=== PATIENT | female | born 1980 | race Caucasian/White ===

== ENCOUNTER 2020-12-15 16:18 | Outpatient (CLI) | payer OTHER | END 2020-12-15 16:19 | disposition home or self-care (01) | LOC: DTY/OP 16:18 | PROVIDERS: ATTEND Surgery | DX: Z68.43 Body mass index [BMI] 50.0-59.9, adult (principal) | CPT/HCPCS: 97802 ==

== ENCOUNTER 2021-02-08 10:00 | Outpatient (CLI) | payer BC ==
[2021-02-08 22:36] LABS: SARS-CoV-2 PCR by NAA Not Detected (NotDetected)
== END 2021-02-08 10:01 | disposition home or self-care (01) ==
LOC: LABBT 10:00
PROVIDERS: ATTEND Surgery
DX: Z01.812 Encounter for preprocedural laboratory examination (principal); K21.9 Gastro-esophageal reflux disease without esophagitis; Z20.822 Contact with and (suspected) exposure to COVID-19
CPT/HCPCS: 36415; 80048; 80061; 80076; 82306; 82607; 82746; 83036; 83540; 83550; 84425; 84446; 84590; 84597; 85025; 87635; U0003; U0005

== ENCOUNTER 2021-02-09 12:00 | Inpatient (IN) | payer BC ==
[2021-02-10 10:16] VITALS: BMI 48.4
[2021-02-13] MEDS ORDERED: Scopolamine 1.5 mg/72 hour Patch ONE (06:34)
[2021-02-13] MEDS ORDERED: cefOXitin Sodium/Dextrose 2 GM/50 ML BAG ONE (06:35)
[2021-02-13] MEDS ORDERED: Enoxaparin Sodium 40 MG/0.4 ML SYRINGE ONE (06:37)
[2021-02-13] MEDS ORDERED: Midazolam HCl 2 mg/2 ml Vial ONE (06:42)
[2021-02-13] MEDS ORDERED: Fentanyl 250 MCG/5 ML VIAL ONE (06:42)
[2021-02-13] MEDS ORDERED: Lidocaine 2% w/Epinephrine 1:200K 20 ML VIAL ONE (07:08)
[2021-02-13] MEDS ORDERED: Bupivacaine 0.25% HCL 30 ML VIAL ONE (07:08)
[2021-02-13] MEDS ORDERED: PROPOFOL 200 MG/20 ML VIAL ONE (07:28)
[2021-02-13] MEDS ORDERED: Glycopyrrolate 0.2 MG/ML 5 ML SYRINGE ONE (07:28)
[2021-02-13] MEDS ORDERED: Ondansetron PF 4 MG/2 ML Vial ONE (07:28)
[2021-02-13] MEDS ORDERED: Rocuronium Bromide 10 MG/ML (10ML VIAL) ONE (07:28)
[2021-02-13] MEDS ORDERED: Dexamethasone 20 MG/5 ML VIAL ONE (07:28)
[2021-02-13] MEDS ORDERED: Ketorolac Tromethamine 30 MG/ML VIAL ONE (07:28)
[2021-02-13] MEDS ORDERED: Lidocaine 1% PF 5 ML VIAL ONE (07:28)
[2021-02-13] MEDS ORDERED: Ondansetron PF 4 MG/2 ML Vial IVP PRN (09:28)
[2021-02-13] MEDS ORDERED: diphenhydrAMINE 50 MG/ML VIAL IVP PRN (09:28)
[2021-02-13] MEDS ORDERED: Promethazine HCl 25 MG/ML VIAL IM PRN ×2 (09:28→09:43)
[2021-02-13] MEDS ORDERED: Morphine 2 MG/ML VIAL SLOW IVP PRN (09:28)
[2021-02-13] MEDS ORDERED: Dextrose 50% Abboject 50 ML SYRINGE SLOW IVP PRN (09:28)
[2021-02-13] MEDS ORDERED: Dextrose 5% in Water 1,000 ML IV PRN (09:28)
[2021-02-13] MEDS ORDERED: Fentanyl 100 MCG/2 ML VIAL ONE (09:39)
[2021-02-13] MEDS ORDERED: Promethazine HCl 25 MG/ML VIAL SLOW IVP PRN (09:43)
[2021-02-13] MEDS ORDERED: Ondansetron HCl/PF 4 MG/2 ML Vial IVP PRN (09:43)
[2021-02-13] MEDS ORDERED: HYDROmorphone 0.5 MG/0.5 ML SYRINGE ONE (09:52)
[2021-02-13] MEDS ORDERED: Morphine 4 MG/ML VIAL SLOW IVP PRN (13:00)
[2021-02-13] MEDS: Ketorolac Tromethamine 30 MG/ML VIAL IVP SCH ×3 (13:12→23:24)
[2021-02-13] MEDS: D5 1/2 NS w/20 mEq KCL 1,000 ML IV SCH ×3 (15:33→23:27)
[2021-02-13] MEDS: Hydrocodone-Acetamin 15 ML UDCUP PO PRN (20:48)
[2021-02-14 03:27] VITALS: TEMP 98
[2021-02-14] MEDS: D5 1/2 NS w/20 mEq KCL 1,000 ML IV SCH (05:40)
[2021-02-14] MEDS: Ketorolac Tromethamine 30 MG/ML VIAL IVP SCH ×2 (05:40→13:55)
[2021-02-14] MEDS: Hydrocodone-Acetamin 15 ML UDCUP PO PRN (05:47)
[2021-02-14 07:28] VITALS: BP 105/64
[2021-02-14] MEDS ORDERED: Pantoprazole 40 MG VIAL IVP SCH (09:00)
[2021-02-14] MEDS ORDERED: Enoxaparin Sodium 40 MG/0.4 ML SYRINGE SC SCH (09:00)
[2021-02-14 09:04] LABS: #Lymphocytes 1.1 thou/uL (1.20-3.40); #Monocytes 0.5 thou/uL (0.11-0.59); #Neutrophils 5.1 thou/uL (1.40-6.50); %Basophils 0.3 % (0.0-1.0); %Eosinophils 0.2 % (0.0-10.0); %Lymphocytes 16.8 % (21.0-51.0); %Monocytes 6.8 % (0.0-10.0); %Neutrophils 75.9 % (42.0-75.0); Hemoglobin 11.2 g/dL (12.0-16.0); Mean Corpuscular HGB CONC 32.8 g/dL (32.0-36.0); Mean Corpuscular Hemoglobin 29.1 pg (27.0-31.0); Mean Corpuscular Volume 88.7 fL (78.0-98.0); Mean Platelet Volume 7.6 fL (7.4-10.4); Platelet Count 285 thou/uL (130-400); Red Blood Cell (RBC) Count 3.86 mill/uL (4.20-5.40); White Blood Cell (WBC) Count 6.7 thou/uL (4.8-10.8)
[2021-02-14 09:18] LABS: Anion Gap 12 mmol/L (10-20); Calc. Creatinine Clearance 218 mL/min (70-130); Calcium 8.2 mg/dL (7.8-10.44); Carbon Dioxide 23 mmol/L (22-29); Chloride 107 mmol/L (98-107); Glucose 97 mg/dL (70-105); Potassium 4.1 mmol/L (3.5-5.1); Sodium 138 mmol/L (136-145)
[2021-02-14 09:50] LABS: BUN (Urea Nitrogen) 10 mg/dL (7.0-18.7)
[2021-02-14] MEDS ORDERED: Hydrocodone-Acetamin 15 ML UDCUP ONE (11:51)
== END 2021-02-14 13:25 | disposition home or self-care (01) | DRG 621 ==
LOC: SURG A 02-13 06:14
PROVIDERS: ADMIT Surgery; ATTEND Surgery
PROC: 0DB64Z3 Excision of Stomach, Percutaneous Endoscopic Approach, Vertical (ICD-10-PCS; principal; 2021-02-13)
PROC: 8E0W7CZ Robotic Assisted Procedure of Trunk Region, Via Natural or Artificial Opening (ICD-10-PCS; 2021-02-13)
DX: E66.01 Morbid (severe) obesity due to excess calories (principal); Z68.42 Body mass index [BMI] 45.0-49.9, adult; R11.0 Nausea
CPT/HCPCS: 36415; 80048; 85025; 88307; C9113; J0694; J1100; J1170; J1650; J1885; J2250; J2270; J2405; J2704; J3010; J3480; S0020